=== PATIENT | female | born 1995 | race Caucasian/White ===

== ENCOUNTER 2019-04-16 19:07 | Emergency (ER) | payer OTHER ==
[~2019-04-16] VITALS: Ht 165.1 cm; Wt 103.9 kg
[2019-04-16 19:13] VITALS: Ht 165.1 cm; Wt 103.9 kg
[2019-04-16 21:21] VITALS: BP 128/83
== END 2019-04-16 21:21 | disposition home or self-care (01) ==
LOC: ED 19:07
DX: L02.415 Cutaneous abscess of right lower limb (principal); J45.909 Unspecified asthma, uncomplicated; F41.9 Anxiety disorder, unspecified; Z98.890 Other specified postprocedural states
CPT/HCPCS: J1885; J2001

== ENCOUNTER 2019-04-18 13:57 | Emergency (ER) | payer OTHER ==
[~2019-04-18] VITALS: Ht 165.1 cm; Wt 102.1 kg
[2019-04-18 14:04] VITALS: BP 132/77; Ht 165.1 cm; Wt 102.1 kg
== END 2019-04-18 14:42 | disposition home or self-care (01) ==
LOC: ED 13:57
DX: L02.214 Cutaneous abscess of groin (principal); J45.909 Unspecified asthma, uncomplicated; F41.9 Anxiety disorder, unspecified; Z98.890 Other specified postprocedural states

== ENCOUNTER 2019-04-23 19:38 | Emergency (ER) | payer OTHER ==
[~2019-04-23] VITALS: Ht 165.1 cm; Wt 104.8 kg
[2019-04-23 19:40] VITALS: Ht 165.1 cm; Wt 104.8 kg
[2019-04-23 21:45] VITALS: BP 113/64
== END 2019-04-23 21:45 | disposition home or self-care (01) ==
LOC: ED 19:38
DX: L02.415 Cutaneous abscess of right lower limb (principal); L98.9 Disorder of the skin and subcutaneous tissue, unspecified; R10.9 Unspecified abdominal pain; J45.909 Unspecified asthma, uncomplicated; F41.9 Anxiety disorder, unspecified; F32.9 Major depressive disorder, single episode, unspecified

== ENCOUNTER 2019-07-17 20:48 | Emergency (ER) | payer OTHER ==
[~2019-07-17] VITALS: Ht 162.6 cm; Wt 108.9 kg
[2019-07-17 20:56] VITALS: Ht 162.6 cm; Wt 108.9 kg
[2019-07-17 23:14] VITALS: BP 113/80
== END 2019-07-17 23:14 | disposition home or self-care (01) ==
LOC: ED 20:48
DX: S06.0X0A Concussion without loss of consciousness, initial encounter (principal); J45.909 Unspecified asthma, uncomplicated; F32.9 Major depressive disorder, single episode, unspecified; Z87.19 Personal history of other diseases of the digestive system; Z98.890 Other specified postprocedural states; V43.52XA Car driver injured in collision with other type car in traffic accident, initial encounter; Y93.I9 Activity, other involving external motion; Y92.488 Other paved roadways as the place of occurrence of the external cause; Y99.8 Other external cause status
CPT/HCPCS: J1885